=== PATIENT | male | born 1960 | race Caucasian/White ===

== ENCOUNTER → 2017-10-21 | Day surgery (SDC) | payer BC ==
[~2017-10-21] MED LIST: Oxymetazoline HCl 0.05% ( 15 ML ) ONE
== END ==
LOC: ENDO/OP 07:07
PROVIDERS: ATTEND Surgery
DX: K21.9 Gastro-esophageal reflux disease without esophagitis (principal); K44.9 Diaphragmatic hernia without obstruction or gangrene; I10 Essential (primary) hypertension; Z79.899 Other long term (current) drug therapy; Z87.891 Personal history of nicotine dependence
CPT/HCPCS: 91010